=== PATIENT | male | born 1990 | race African-American/Black ===

== ENCOUNTER 2017-10-10 17:57 | Emergency (ER) | payer SELFPAY ==
[~2017-10-10] VITALS: Ht 185.4 cm; Wt 83.9 kg
[2017-10-10 19:01] VITALS: BP 128/66
== END 2017-10-10 19:01 | disposition home or self-care (01) ==
LOC: ED 17:57
DX: S05.02XA Injury of conjunctiva and corneal abrasion without foreign body, left eye, initial encounter (principal); X58.XXXA Exposure to other specified factors, initial encounter; Y93.89 Activity, other specified; Y92.89 Other specified places as the place of occurrence of the external cause; Y99.8 Other external cause status
CPT/HCPCS: 90715